=== PATIENT | female | born 1995 | race Caucasian/White ===

== ENCOUNTER 2018-05-22 15:34 | Emergency (ER) | payer BC ==
[~2018-05-22] VITALS: Ht 177.8 cm; Wt 81.6 kg
[2018-05-22 15:40] VITALS: BP_SYST 128
[2018-05-22 16:19] VITALS: BP_SYST 128
== END 2018-05-22 16:19 | disposition home or self-care (01) ==
LOC: SED 15:34
DX: F41.9 Anxiety disorder, unspecified (principal); J45.909 Unspecified asthma, uncomplicated; F17.210 Nicotine dependence, cigarettes, uncomplicated; R03.0 Elevated blood-pressure reading, without diagnosis of hypertension
CPT/HCPCS: 99283